=== PATIENT | male | born 2000 | race Caucasian/White ===

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

== ENCOUNTER → 2018-11-08 | Outpatient (REF) | payer OTHER | LOC: M LAB REF 13:14 | PROVIDERS: ATTEND Physician Assistant | DX: R50.9 Fever, unspecified (principal) ==

== ENCOUNTER → 2018-11-30 | Outpatient (CLI) | payer BC, OTHER ==
--- NOTE | 2018-11-30 18:05 | REP ---
Clinical: Head injury with concussion. Technique: AP, lateral, flexion/extension, bilateral oblique, and open-mouth views. Findings: Alignment and lordosis is maintained. There is no evidence for acute fracture / compression injury or subluxation. No significant degenerative changes are appreciated. Oblique views demonstrate patent neural foramen. Open mouth view demonstrates normal C1-C2 articulation and odontoid process. Impression: Normal cervical spine series. Electronically Signed by Augie López MD 11/30/2018 05:56 P
== END ==
LOC: M WUC 17:37
PROVIDERS: ATTEND Physician Assistant Medical
DX: S06.0X1A Concussion with loss of consciousness of 30 minutes or less, initial encounter (principal); Y93.9 Activity, unspecified; Y99.9 Unspecified external cause status; Y92.9 Unspecified place or not applicable; X58.XXXA Exposure to other specified factors, initial encounter

== ENCOUNTER → 2021-01-20 | Outpatient (REF) | payer BC, OTHER | LOC: M LAB REF 19:45 | PROVIDERS: ATTEND Physician Assistant | DX: N50.819 Testicular pain, unspecified (principal) ==

== ENCOUNTER → 2021-01-30 | Outpatient (CLI) | payer BC, OTHER ==
--- NOTE | 2021-01-30 16:40 | REP ---
INDICATION: TESTICULAR LUMP. COMPARISON: None. TECHNIQUE: Real-time sonographic evaluation of scrotum and contents performed. FINDINGS: The testicles are normal in size and echotexture, right testicle measuring 4.8 x 1.9 x 2.8 cm and left testicle 4.4 x 1.9 x 2.5 cm. There is no testicular mass or torsion. Blood flow is seen in each testicle with duplex Doppler evaluation. There are mildly prominent venous structures on the left suggesting a small left varicocele. There are 2 exophytic cysts along the surface of the head of the right epididymis, measuring 2 mm and 6 mm maximally, corresponding to the reported palpable lump. IMPRESSION: The right-sided palpable lump appears to correspond to a 6 mm exophytic cyst of the head of the right epididymis. There is a small left varicocele. There is no testicular mass or torsion. <Electronically signed by Mingo Dawn > 01/30/21 [id number]
== END ==
LOC: M RAD 15:19
PROVIDERS: ATTEND Physician Assistant
DX: N50.819 Testicular pain, unspecified (principal); I86.1 Scrotal varices; N50.3 Cyst of epididymis

== ENCOUNTER 2024-01-22 09:54 | Emergency (ER) | payer BC, OTHER ==
[~2024-01-22] VITALS: Ht 177.8 cm; Wt 78.5 kg
[2024-01-22] MEDS: NEOSPORIN OINT 0.9 GM PKT TOP ONE (12:02)
[2024-01-22 12:54] VITALS: BP 121/74; TEMP 98.4; O2SAT 98
== END 2024-01-22 12:56 | disposition home or self-care (01) ==
LOC: M ED 12:49
DX: S61.302A Unspecified open wound of right middle finger with damage to nail, initial encounter (principal); W23.1XXA Caught, crushed, jammed, or pinched between stationary objects, initial encounter; Y92.9 Unspecified place or not applicable; Y93.9 Activity, unspecified; Y99.0 Civilian activity done for income or pay